=== PATIENT | male | born 2000 | race American Indian/Alaskan Native ===

== ENCOUNTER 2021-08-24 19:22 | Emergency (ER) | payer MEDICAID ==
[2021-08-24] MEDS ORDERED: SODIUM CHLORIDE 0.9% 1000 ML 1,000 ML IV ONE (20:26)
[2021-08-24] MEDS ORDERED: ACETAMINOPHEN 500 MG TAB PO ONE (20:26)
[2021-08-24] MEDS ORDERED: SODIUM CHLORIDE 0.9% 1000 ML 1,000 ML ONE (20:27)
[2021-08-24] MEDS ORDERED: dexAMETHasone 4 MG/ML VIAL IV ONE (20:46)
[2021-08-24] MEDS ORDERED: PENICILLIN G BENZATHINE 1.2 MILLION UNIT/2 ML INJ IM STA (20:46)
[2021-08-24 21:36] VITALS: BP 122/59
--- NOTE | 2021-08-24 22:20 | Emergency Department Report ---
ED General Adult HPI - General Chief complaint: Fever Stated complaint: FLU LIKE SYMPTOMS Time Seen by Provider: 08/24/21 20:46 Source: patient, EMS Mode of arrival: Stretcher Limitations: No Limitations - History of Present Illness Initial comments: 21-year-old -[place] male presents emerge department complaining of pain with eating and drinking a dull throbbing fashion worse with eating and and drinking. Reports feeling feverish as well and having some irritation to the back of his throat which appears to be swollen and tenderness to his neck. Reports no drooling, no voice change no abdominal pain hemoptysis, hematemesis hematochezia -: Gradual Radiation: non-radiation Severity scale (0 -10): 0 Consistency: constant Improves with: none Worsens with: none Associated Symptoms: denies other symptoms. denies: chest pain, cough, loss of appetite, malaise, shortness of breath, syncope - Related Data Allergies Allergy/AdvReac Type Severity Reaction Status Date / Time No Known Allergies Allergy Verified 08/24/21 20:19 ED Review of Systems ROS: Stated complaint: FLU LIKE SYMPTOMS Other details as noted in HPI Comment: All other systems reviewed and negative ED Past Medical Hx - Past Medical History Previous Medical History?: No ED Physical Exam - General Limitations: No Limitations General appearance: alert, in no apparent distress - Head Head exam: Present: atraumatic, normocephalic - Eye Eye exam: Present: normal appearance, PERRL, EOMI Pupils: Present: normal accommodation - ENT ENT exam: Present: mucous membranes moist, other (The pharynx red with swelling positive exudate is noted. No unilateral swelling is noted. No drooling.) - Neck Neck exam: Present: normal inspection, lymphadenopathy (Tonsillar lymphadenopathy is noted.) - Respiratory Respiratory exam: Present: normal lung sounds bilaterally. Absent: respiratory distress - Cardiovascular Cardiovascular Exam: Present: regular rate, normal rhythm. Absent: systolic murmur, diastolic murmur, rubs, gallop - GI/Abdominal GI/Abdominal exam: Present: soft, normal bowel sounds - Rectal Rectal exam: Present: deferred - Extremities Exam Extremities exam: Present: normal inspection - Back Exam Back exam: Present: normal inspection - Neurological Exam Neurological exam: Present: alert, oriented X3 - Psychiatric Psychiatric exam: Present: normal affect, normal mood - Skin Skin exam: Present: warm, dry, intact, normal color. Absent: rash ED Course Vital Signs 08/24/21 08/24/21 20:18 21:36 Temperature 101.7 F H 100.0 F H Pulse Rate 92 H 81 Respiratory 18 16 Rate Blood Pressure 128/74 122/59 [Left] O2 Sat by Pulse 99 99 Oximetry Critical care attestation.: If time is entered above; I have spent that time in minutes in the direct care of this critically ill patient, excluding procedure time. ED Disposition Clinical Impression: Exudative pharyngitis Disposition: HOME / SELF CARE / HOMELESS Is pt being admited?: No Does the pt Need Aspirin: No Condition: Stable Instructions: Pharyngitis, Strep Throat, Adult, Strep Throat, Adult, [id number], Sore Throat, [id number] Referrals: [facility] [Provider Group] - 3-5 Days
== END 2021-08-24 22:38 | disposition home or self-care (01) ==
LOC: ED 20:02
DX: J02.8 Acute pharyngitis due to other specified organisms (principal)
CPT/HCPCS: 96361; 96372; 96374; 99283; J0561; J1100; J7030; Q0162